=== PATIENT | female | born 1970 | race Caucasian/White ===

== ENCOUNTER 2017-04-13 10:22 | Emergency (ER) | payer OTHER ==
[~2017-04-13] VITALS: Ht 157.5 cm; Wt 608.7 kg
[2017-04-13] MEDS ORDERED: SYNTHROID50 MCG (10:38)
[2017-04-13] MEDS ORDERED: TUSSI PRES-B L120 M1 PO (12:53)
[2017-04-13] MEDS ORDERED: ZITHROMAX TRI-500 MG PO (12:53)
== END 2017-04-13 12:56 | disposition home or self-care (01) ==
LOC: ER 10:22
DX: B34.9 Viral infection, unspecified (principal)

== ENCOUNTER 2018-09-13 03:32 | Emergency (ER) | payer OTHER ==
[~2018-09-13] VITALS: Ht 157.5 cm; Wt 68.0 kg
[~2018-09-13 03:32] MED LIST: SYNTHROID50 MCG; TUSSI PRES-B L120 M1 PO; ZITHROMAX TRI-500 MG PO
== END 2018-09-13 12:44 | disposition home or self-care (01) ==
LOC: ER 03:32
DX: J45.998 Other asthma (principal)

== ENCOUNTER 2019-01-03 13:36 | Outpatient (CLI) | payer OTHER | END 2019-01-03 13:43 | disposition home or self-care (01) | LOC: SONOGRAMA 13:36 | DX: N60.11 Diffuse cystic mastopathy of right breast (principal); N60.12 Diffuse cystic mastopathy of left breast ==

== ENCOUNTER 2020-08-27 07:54 | Outpatient (CLI) | payer OTHER | END 2020-08-27 08:21 | disposition home or self-care (01) | LOC: LAB 07:54 | PROVIDERS: ATTEND Specialist | DX: Z01.811 Encounter for preprocedural respiratory examination (principal); Z13.1 Encounter for screening for diabetes mellitus; D50.9 Iron deficiency anemia, unspecified; E83.51 Hypocalcemia; D68.9 Coagulation defect, unspecified; N39.0 Urinary tract infection, site not specified; E03.9 Hypothyroidism, unspecified ==

== ENCOUNTER 2020-09-03 11:15 | Inpatient (IN) | payer OTHER ==
[~2020-09-03] VITALS: Ht 157.5 cm; Wt 72.1 kg
[2020-09-10] MEDS ORDERED: PERCOCET 5-3251 EACH PO (08:04)
[2020-09-10] MEDS ORDERED: IBUPROFEN800 MG PO (08:04)
== END 2020-09-10 08:52 | disposition home or self-care (01) | DRG 743 ==
LOC: SURH 11:15 → OB/GYN 09-07 05:35 → O/R 09-07 05:35 → OB/GYN 09-07 10:53 → O/R 09-07 12:53 → OB/GYN 09-07 14:26
PROVIDERS: ADMIT Specialist; ATTEND Specialist
PROC: 0UT70ZZ Resection of Bilateral Fallopian Tubes, Open Approach (ICD-10-PCS; 2020-09-07)
PROC: 0UB10ZZ Excision of Left Ovary, Open Approach (ICD-10-PCS; 2020-09-07)
PROC: 0UT90ZZ Resection of Uterus, Open Approach (ICD-10-PCS; principal; 2020-09-07 07:00)
DX: D25.9 Leiomyoma of uterus, unspecified (principal); E03.8 Other specified hypothyroidism

== ENCOUNTER 2022-03-30 05:41 | Emergency (ER) | payer OTHER ==
[~2022-03-30] VITALS: Ht 157.5 cm; Wt 72.6 kg
[~2022-03-30 05:41] MED LIST changes: +IBUPROFEN800 MG PO; +PERCOCET 5-3251 EACH PO
== END 2022-03-30 08:28 | disposition home or self-care (01) ==
LOC: ER 05:41
DX: S50.02XA Contusion of left elbow, initial encounter (principal); S40.012A Contusion of left shoulder, initial encounter; S50.12XA Contusion of left forearm, initial encounter; W18.39XA Other fall on same level, initial encounter; Y93.89 Activity, other specified; Y92.9 Unspecified place or not applicable; Y99.9 Unspecified external cause status; Z88.0 Allergy status to penicillin

== ENCOUNTER 2022-06-11 13:55 | Emergency (ER) | payer OTHER ==
[~2022-06-11] VITALS: Ht 157.5 cm; Wt 71.7 kg
[2022-06-11] MEDS ORDERED: FAMOTIDINE20 MG PO (14:07)
[2022-06-11] MEDS ORDERED: OMEPRAZOLE20 M1 PO (14:07)
[2022-06-11] MEDS ORDERED: MONTELUKAST SOD10 MG PO (14:09)
== END 2022-06-11 21:35 | disposition home or self-care (01) ==
LOC: ER 13:55
DX: S52.122A Displaced fracture of head of left radius, initial encounter for closed fracture (principal); S40.012A Contusion of left shoulder, initial encounter; S60.212A Contusion of left wrist, initial encounter; W18.39XA Other fall on same level, initial encounter; Y93.9 Activity, unspecified; Y92.89 Other specified places as the place of occurrence of the external cause; Y99.9 Unspecified external cause status; Z88.0 Allergy status to penicillin

== ENCOUNTER 2024-01-15 16:19 | Emergency (ER) | payer OTHER ==
[~2024-01-15] VITALS: Ht 157.5 cm; Wt 70.8 kg
[~2024-01-15 16:19] MED LIST changes: +FAMOTIDINE20 MG PO; +MONTELUKAST SOD10 MG PO; +OMEPRAZOLE20 M1 PO
[2024-01-15] MEDS ORDERED: METOCLOPRAMIDE HCL 5 MG/ML VIAL IV ONE (19:30)
[2024-01-15] MEDS ORDERED: 0.9 % SODIUM CHLORIDE 500 ML IV ONE (19:30)
[2024-01-15] MEDS ORDERED: KETOROLAC TROMETHAMINE 30 MG VIAL IV ONE (19:45)
== END 2024-01-15 22:12 | disposition home or self-care (01) ==
LOC: ER 16:20
DX: G44.209 Tension-type headache, unspecified, not intractable (principal); E03.9 Hypothyroidism, unspecified; Z88.0 Allergy status to penicillin

== ENCOUNTER → 2024-04-16 | Emergency (ER) | payer OTHER ==
[~2024-04-16] VITALS: Ht 157.5 cm; Wt 75.3 kg
== END | disposition left against medical advice (07) ==
LOC: ER 12:07
DX: Z53.21 Procedure and treatment not carried out due to patient leaving prior to being seen by health care provider (principal)

== ENCOUNTER → 2024-07-19 | Emergency (ER) | payer OTHER | END | disposition home or self-care (01) | LOC: ER 07:21 | DX: J40 Bronchitis, not specified as acute or chronic (principal); Z88.0 Allergy status to penicillin ==

== ENCOUNTER 2025-01-23 07:34 | Outpatient (CLI) | payer OTHER | END 2025-01-23 07:45 | disposition home or self-care (01) | LOC: TOM 07:34 | DX: R19.2 Visible peristalsis (principal); K62.5 Hemorrhage of anus and rectum ==

== ENCOUNTER 2025-02-17 10:14 | Emergency (ER) | payer OTHER ==
[~2025-02-17] VITALS: Ht 157.5 cm; Wt 77.1 kg
[2025-02-17] MEDS ORDERED: PROAIR RESPICL90 MCG (10:39)
[2025-02-17] MEDS ORDERED: PULMICORT1 MG/2 ML IH (10:39)
[2025-02-17] MEDS ORDERED: RACEPINEPHRINE HCL 0.5 ML AMPUL IH STA (11:16)
[2025-02-17] MEDS ORDERED: DEXAMETHASONE SODIUM PHOSPHATE 4 MG/ML VIAL IM STA (11:17)
[2025-02-17] MEDS ORDERED: DEXAMETHASONE SODIUM PHOSPHATE 4 MG/ML VIAL ONE (11:20)
[2025-02-17] MEDS ORDERED: RACEPINEPHRINE HCL 0.5 ML AMPUL IH ONE (11:41)
[2025-02-17 11:49] LABS: BASO % 0.5 % (0.1-1.2); EOS # 0.11 (0.04-0.54); EOS % 1.5 % (0.7-7.0); LYMPH # 1.29 (1.18-3.74); LYMPH % 17.3 % (19.3-53.1); MEAN PLATELET VOLUME 10.90 fl (9.4-12.4); MONO # 0.62 (0.24-0.82); MONO % 8.3 % (4.7-12.5); NEUT # 5.38 (1.56-6.13); NEUT % 72.1 % (34.0-71.1); RED CELL DISTRIBUTION WIDTH 13.9 % (11.6-14.4)
[2025-02-17 11:57] LABS: ERYTHROCYTE SEDIMENTATION RATE 26 mm/hr (0-30)
[2025-02-17 12:22] LABS: ALT/SGPT 54.0 U/L (12-78); AST/SGOT 31.0 U/L (15-37); BILIRUBIN TOTAL 0.31 mg/dL (0.3-1.2); BUN CREA RATIO 21.0 (7.0-25.0); CREATININE SERUM 0.72 mg/dL (0.55-1.02); GFR 85.06; GLOBULINA 3.9 G/DL (2.4-3.5); GLUCOSE FASTING 85.0 mg/dL (65-100); OSMOLALITY SERUM 279.0 MOSM/KG (275-295)
[2025-02-17 12:58] LABS: URINE APPEARANCE Clear; URINE BILIRRUBIN Negative (NEGATIVE); URINE BLOOD Negative; URINE COLOR Yellow; URINE GLUCOSE Negative (NEGATIVE); URINE KETONE Trace (NEGATIVE); URINE LEUKOCYTE Trace; URINE NITRATE Negative; URINE PROTEIN Negative (NEGATIVE); URINE UROBILINOGEN 0.2 E.U./dl
[2025-02-17 13:02] LABS: URINE EPITHELIAL CELLS 82.4 uL (0.0-38.8); URINE RBC 4.5 uL (0.0-20.8); URINE WBC 56.7 uL (0.0-23.2)
[2025-02-17 13:20] LABS: URINE CAST 0.58 uL (0.0-1.40)
[2025-02-17 13:21] LABS: URINE CRYSTALS FEW /HPF
[2025-02-17 13:29] LABS: COVID-19 AG NEGATIVE (NEGATIVE)
[2025-02-17] MEDS ORDERED: IPRATROPIUM BROMIDE 0.5 MG/2.5 ML AMPUL.NEB IH STA (15:25)
[2025-02-17] MEDS ORDERED: IPRATROPIUM BROMIDE 0.5 MG/2.5 ML AMPUL.NEB IH ONE (16:45)
[2025-02-17] MEDS ORDERED: LEVALBUTEROL HCL 0.63 MG/3 ML SOLUTION IH ONE (16:45)
[2025-02-17] MEDS ORDERED: LEVALBUTEROL HCL 0.63 MG/3 ML SOLUTION IH SCH (17:00)
[2025-02-17] MEDS ORDERED: MAGNESIUM SULFATE IN WATER 50 ML IV ONE (19:00)
[2025-02-17] MEDS ORDERED: MAGNESIUM SULFATE 50% 1,000 MG/2 ML VIAL ONE (19:39)
[2025-02-17] MEDS ORDERED: GILPHEX TR 3901 EACH PO (20:18)
[2025-02-17] MEDS ORDERED: PROTONIX40 MG PO (20:18)
[2025-02-17] MEDS ORDERED: ZYRTEC10 MG PO (20:18)
[2025-02-17] MEDS ORDERED: MEDROLPACK PO (20:18)
[2025-02-17] MEDS ORDERED: BENZONATATE200 M1 PO (20:18)
[2025-02-17] MEDS ORDERED: PROAIR RESPICL90 MCG IH (20:18)
[2025-02-17] MEDS ORDERED: LEVALBUTER0.63 MG/3 IH (20:18)
[2025-02-17] MEDS ORDERED: AZITHROMYCIN500 MG PO (20:18)
[2025-02-17] MEDS ORDERED: SINGULAIR10 MG PO (20:18)
== END 2025-02-17 20:43 | disposition home or self-care (01) ==
LOC: ER 10:15
PROVIDERS: Physician Assistant Medical
DX: J98.01 Acute bronchospasm (principal); Z20.822 Contact with and (suspected) exposure to COVID-19; Z88.0 Allergy status to penicillin